=== PATIENT | female | born 1975 | race Caucasian/White ===

== ENCOUNTER 2016-07-16 18:21 | Observation (INO) | payer SELFPAY ==
[~2016-07-16] VITALS: Ht 154.9 cm; Wt 80.1 kg
[2016-07-16 19:17] LABS: DAU SCREEN DISCLAIMER
[2016-07-16] MEDS ORDERED: SERT100T5 PO (19:17)
[2016-07-16 19:18] LABS: HEMOGLOBIN 13.5 g/dL (11.7-16.4)
[2016-07-16] MEDS ORDERED: LITH300T3 PO (19:18)
[2016-07-16] MEDS ORDERED: LISI5TAB7 PO (19:19)
[2016-07-16] MEDS ORDERED: LAMO200T49 PO (19:20)
[2016-07-16] MEDS ORDERED: RISP0.5T3 PO (19:21)
[2016-07-16] MEDS ORDERED: BUTA-177 PO (19:22)
[2016-07-16] MEDS ORDERED: QUET300T PO (19:22)
[2016-07-16 19:26] LABS: BLOOD UREA NITROGEN 13 mg/dL (7-18)
[2016-07-16 19:27] LABS: ACETAMINOPHEN < 2 mcg/mL (10-30)
[2016-07-16 19:31] LABS: HCG UR OBC PASS
[2016-07-17] MEDS ORDERED: BUTALB/APAP/CAFFEINE 50MG/325MG/40MG PO PRN
[2016-07-17] MEDS ORDERED: ACETAMINOPHEN 325 MG TABLET PO PRN
[2016-07-17] MEDS ORDERED: LORazepam 1MG TABLET PO PRN
[2016-07-17 01:44] VITALS: BP 101/68
[2016-07-17] MEDS: QUETIAPINE 100MG TABLET PO SCH ×2 (02:12→21:04)
[2016-07-17 08:02] VITALS: BP 104/59
[2016-07-17] MEDS ORDERED: LISINOPRIL 5 MG TABLET PO SCH ×2 (09:00→21:00)
[2016-07-17] MEDS: LITHIUM CARBONATE 300 MG TABLET.ER PO SCH ×3 (09:00→21:00)
[2016-07-17] MEDS ORDERED: LAMOTRIGINE 200 MG TABLET PO SCH ×2 (09:00→21:00)
[2016-07-17] MEDS ORDERED: SERTRALINE 100MG TABLET PO SCH ×2 (09:00→21:00)
[2016-07-17 19:38] VITALS: BP 133/87
[2016-07-17] MEDS: RISPERIDONE 0.5 MG TABLET PO SCH ×2 (21:03)
[2016-07-18 07:18] VITALS: BP 103/67
[2016-07-18] MEDS: LITHIUM CARBONATE 300 MG TABLET.ER PO SCH (09:00)
[2016-07-18] MEDS ORDERED: LORazepam 1MG TABLET PO PRN (16:00)
[2016-07-18] MEDS ORDERED: LAMOTRIGINE 200 MG TABLET PO SCH (21:00)
[2016-07-18] MEDS ORDERED: OLANZAPINE 10 MG TABLET PO SCH (21:00)
== END 2016-07-18 16:36 ==
LOC: ED 22:22 → EDIP 23:39 → SUATTDRO 23:41 → 3E 07-17 01:24
DX: R45.851 Suicidal ideations (principal); F31.32 Bipolar disorder, current episode depressed, moderate; F43.10 Post-traumatic stress disorder, unspecified; G43.909 Migraine, unspecified, not intractable, without status migrainosus; I10 Essential (primary) hypertension; F30.9 Manic episode, unspecified; F10.20 Alcohol dependence, uncomplicated; F12.90 Cannabis use, unspecified, uncomplicated; Z90.49 Acquired absence of other specified parts of digestive tract; Z81.8 Family history of other mental and behavioral disorders
CPT/HCPCS: 36415; 80048; 80178; 80307; 80329; 81025; 82040; 85025; 99285; G0378; G0480